=== PATIENT | male | born 1955 | race Caucasian/White ===

== ENCOUNTER 2019-03-18 05:40 | Day surgery (SDC) | payer MEDICAID ==
[~2019-03-18] VITALS: Ht 167.6 cm; Wt 83.9 kg
[2019-03-18] MEDS ORDERED: TROPICAMIDE 1% OPHTH DROPS 15ML RIGHTEYE NR (06:00)
[2019-03-18] MEDS ORDERED: PHENYLEPHRINE HCL 10% OPHTH DROPS 5ML RIGHTEYE NR (06:00)
[2019-03-18] MEDS ORDERED: CYCLOPENTOLATE HCL 1% OPHTH DROPS 2ML RIGHTEYE NR (06:00)
[2019-03-18] MEDS ORDERED: SODIUM CHLORIDE 0.9% 1,000 ML IV SCH (06:30)
[2019-03-18] MEDS ORDERED: FENTANYL CITRATE/PF 50MCG/ML 2ML VIAL ONE (07:30)
[2019-03-18] MEDS ORDERED: BALANCED SALT IRRIG SOLN COMB1 500ML OP SCH (07:30)
[2019-03-18] MEDS ORDERED: MIDAZOLAM HCL 2 MG/2 ML VIAL ONE (07:30)
[2019-03-18] MEDS ORDERED: HYALURONATE SODIUM 14 MG/ML 0.85ML SYRINGE IO ONE (07:42)
[2019-03-18] MEDS ORDERED: KETOROLAC 30MG/ML VIAL ONE (08:23)
[2019-03-18] MEDS ORDERED: LABETALOL HCL 5MG/ML VIAL 20ML IV ONE (08:33)
[2019-03-18] MEDS ORDERED: METO25TA6 PO (09:47)
[2019-03-18] MEDS ORDERED: CLOP75TA4 PO (09:47)
[2019-03-18] MEDS ORDERED: METF-416 PO (09:47)
[2019-03-18] MEDS ORDERED: PANT20TA3 PO (09:47)
[2019-03-18] MEDS ORDERED: INSU100I24 SQ (09:47)
[2019-03-18] MEDS ORDERED: FERR325T6 PO (09:47)
[2019-03-18] MEDS ORDERED: ASPI-1393 PO (09:47)
[2019-03-18] MEDS ORDERED: ASCO-339 PO (09:47)
[2019-03-18] MEDS ORDERED: LISI10TA5 PO (09:47)
[2019-03-18] MEDS ORDERED: SITA100T11 PO (09:47)
[2019-03-18] MEDS ORDERED: ATOR40TA70 PO (09:47)
== END 2019-03-18 10:07 | disposition home or self-care (01) ==
LOC: OR 05:40
PROVIDERS: ATTEND Ophthalmology
DX: E11.36 Type 2 diabetes mellitus with diabetic cataract (principal); E11.65 Type 2 diabetes mellitus with hyperglycemia; H25.89 Other age-related cataract; I25.10 Atherosclerotic heart disease of native coronary artery without angina pectoris; D64.9 Anemia, unspecified; E78.00 Pure hypercholesterolemia, unspecified; Z79.82 Long term (current) use of aspirin; Z79.4 Long term (current) use of insulin; Z79.84 Long term (current) use of oral hypoglycemic drugs; Z79.899 Other long term (current) drug therapy; Z98.890 Other specified postprocedural states
CPT/HCPCS: 66984; 82962; J1885; J2250; J3010; J3490; V2632

== ENCOUNTER 2019-05-13 06:02 | Day surgery (SDC) | payer MEDICAID ==
[~2019-05-13] VITALS: Ht 167.6 cm; Wt 83.9 kg
[~2019-05-13 06:02] MED LIST: ASCO-339 PO; ASPI-1497 PO; ATOR40TA70 PO; CLOP75TA4 PO; FERR325T6 PO; INSU100I24 SQ; LISI10TA5 PO; METF-416 PO; METO25TA6 PO; PANT20TA3 PO; SITA100T11 PO
[2019-05-13] MEDS ORDERED: TROPICAMIDE 1% OPHTH DROPS 15ML LEFTEYE ONE (06:50)
[2019-05-13] MEDS ORDERED: CYCLOPENTOLATE HCL 1% OPHTH DROPS 2ML LEFTEYE ONE (06:50)
[2019-05-13] MEDS ORDERED: PHENYLEPHRINE HCL 10% OPHTH DROPS 5ML LEFTEYE ONE (06:50)
[2019-05-13] MEDS ORDERED: INSULIN REGULAR (HUMULIN R) UD 100 UNITS/ML SYR SUBCUT ONE (07:30)
[2019-05-13] MEDS ORDERED: BALANCED SALT IRRIG SOLN COMB1 500ML OP ONE (07:30)
[2019-05-13] MEDS ORDERED: SODIUM CHLORIDE 0.9% 1,000 ML IV SCH (07:45)
[2019-05-13] MEDS ORDERED: HYALURONATE SODIUM 10 MG/ML 0.55ML SYRINGE IO ONE (08:16)
[2019-05-13] MEDS ORDERED: TETRACAINE 0.5% OPHTH DROPS 4ML ONE ×2 (08:27→10:47)
[2019-05-13] MEDS ORDERED: FENTANYL CITRATE/PF 50MCG/ML 2ML VIAL ONE (08:35)
[2019-05-13] MEDS ORDERED: MIDAZOLAM HCL 2 MG/2 ML VIAL ONE (08:35)
[2019-05-13] MEDS ORDERED: CEFAZOLIN SODIUM 1000MG/VIAL ONE (10:00)
[2019-05-13] MEDS ORDERED: METOCLOPRAMIDE HCL 10MG/2ML VIAL ONE (10:17)
[2019-05-13] MEDS ORDERED: EPHEDRINE SULFATE 50MG/ML VIAL ONE (10:17)
[2019-05-13] MEDS ORDERED: ONDANSETRON HCL 4MG/2ML INJ ONE (10:17)
[2019-05-13] MEDS ORDERED: BALANCED SALT IRRIG SOLN 15ML ONE (10:47)
[2019-05-13] MEDS ORDERED: NEO/POLYMYX B SULF/DEXAMETH OPHTH OINT 3.5GM ONE (10:47)
[2019-05-13] MEDS ORDERED: PREDNISOLONE ACETATE 1% OPHTH DROPS 5ML ONE (10:47)
[2019-05-13] MEDS ORDERED: CIPROFLOXACIN 0.3% OPHTH SOLN 2.5ML ONE (10:47)
[2019-05-13] MEDS ORDERED: ACETYLCHOLINE CHLORIDE INTRAOCULAR SOLUTION 1:100 ELECTROLYTE DILUENT IO ONE (10:47)
[2019-05-13] MEDS ORDERED: LIDOCAINE HCL/PF 2% 20 MG/ML 10ML VIAL ONE (10:47)
== END 2019-05-13 10:52 | disposition home or self-care (01) ==
LOC: OR 06:02
PROVIDERS: ATTEND Ophthalmology
DX: E11.36 Type 2 diabetes mellitus with diabetic cataract (principal); E11.65 Type 2 diabetes mellitus with hyperglycemia; H25.89 Other age-related cataract; E78.00 Pure hypercholesterolemia, unspecified; D64.9 Anemia, unspecified; I25.10 Atherosclerotic heart disease of native coronary artery without angina pectoris; I10 Essential (primary) hypertension; Z68.30 Body mass index [BMI] 30.0-30.9, adult; Z79.82 Long term (current) use of aspirin; Z79.84 Long term (current) use of oral hypoglycemic drugs; Z79.899 Other long term (current) drug therapy; Z98.890 Other specified postprocedural states
CPT/HCPCS: 66984; 82962; J1815; J2250; J3010; J3490; V2632; J0690; J2405; J2765